=== PATIENT | female | born 1960 | race Caucasian/White ===

== ENCOUNTER 2025-02-27 09:04 | Outpatient (CLI) | payer BC ==
[2025-02-27 09:37] LABS: BASOPHILS # (AUTO) 0.1 X10'3 (0-0.2); BASOPHILS % (AUTO) 1.1 % (0-1); EOSINOPHILS # (AUTO) 0.2 X10'3 (0-0.9); EOSINOPHILS % (AUTO) 4.8 % (0-6); HEMATOCRIT 35.2 % (35.0-45.0); HEMOGLOBIN 11.4 g/dl (12.0-16.0); LYMPHOCYTES # (AUTO) 2.5 X10'3 (1.1-4.8); LYMPHOCYTES % (AUTO) 47.5 % (21-51); MEAN CORPUSCULAR HEMOGLOBIN 23.4 PG (27.0-31.0); MEAN CORPUSCULAR HGB CONC 32.3 g/dL (33.0-36.5); MEAN CORPUSCULAR VOLUME 72.3 FL (78-98); MEAN PLATELET VOLUME 7.9 FL (7.4-10.4); MONOCYTES # (AUTO) 0.4 X10'3 (0-0.9); MONOCYTES % (AUTO) 7.8 % (2-12); NEUTROPHILS % (AUTO) 38.8 % (42-75); PLATELET COUNT 343 X10'3 (140-440); RED BLOOD COUNT 4.86 X10'6 (4.20-5.60); WHITE BLOOD COUNT 5.2 X10'3 (4.5-11.0)
[2025-02-27 10:07] LABS: IRON 29 UG/DL (49-151)
[2025-02-27 10:21] LABS: ALANINE AMINOTRANSFERASE 16 U/L (12-78); ASPARTATE AMINO TRANSFERASE 17 U/L (10-37); CHOL/HDL RATIO 1.8 (0.00-4.99); CHOLESTEROL 147 MG/DL (0-200); FERRITIN 13 NG/ML (8-252); HDL CHOLESTEROL 81 MG/DL (35-60); LDL CHOLESTEROL 49 MG/DL (50-100); TRIGLYCERIDES 50 MG/DL (20-135)
== END 2025-02-27 23:59 | disposition home or self-care (01) ==
LOC: LAB 09:04
PROVIDERS: ATTEND Family Medicine
DX: I10 Essential (primary) hypertension (principal); R73.09 Other abnormal glucose; E78.2 Mixed hyperlipidemia; K76.89 Other specified diseases of liver
CPT/HCPCS: 36415; 80061; 82172; 82306; 82728; 83036; 83540; 84450; 84460; 85025